=== PATIENT | female | born 1970 | race Caucasian/White ===

== ENCOUNTER 2018-03-13 20:24 | Emergency (ER) | payer BC ==
[~2018-03-13] VITALS: Ht 165.1 cm; Wt 122.5 kg
[~2018-03-13 20:24] MED LIST: PROZAC20 MG PO
[2018-03-13] MEDS ORDERED: CLARITIN-D 241 EAC1 PO (20:43)
[2018-03-13] MEDS ORDERED: TORADOL 10 MG T10 MG PO (21:28)
[2018-03-13] MEDS ORDERED: FLEXERIL PO (21:28)
[2018-03-13] MEDS ORDERED: NORCO 5-325 TA1 EACH PO (21:28)
[2018-03-13 21:46] VITALS: BP 136/50
== END 2018-03-13 21:47 | disposition home or self-care (01) ==
LOC: M.ERS 20:24
DX: S39.012A Strain of muscle, fascia and tendon of lower back, initial encounter (principal); M54.42 Lumbago with sciatica, left side; F32.9 Major depressive disorder, single episode, unspecified; X50.1XXA Overexertion from prolonged static or awkward postures, initial encounter; Y93.89 Activity, other specified; Y92.89 Other specified places as the place of occurrence of the external cause; Y99.8 Other external cause status